=== PATIENT | female | born 1985 | race American Indian/Alaskan Native ===

== ENCOUNTER 2016-07-12 09:03 | Emergency (ER) | payer SELFPAY ==
[2016-07-12 09:12] VITALS: BP 150/100
--- NOTE | 2016-07-12 10:22 | Emergency Department Report ---
HPI - General Chief Complaint: Upper Respiratory Infection Time Seen by Provider: 07/12/16 10:05 - HPI HPI: Patient is a 30-year-old male who presents to ED complaining of throat pain 2 days. Patient describes pain as throbbing in nature, 8 out of 10 intensity, nonradiating, localized to her throat. Admits pain with swallowing and eating. Patient admits no appetite due to throat pain. She is barely able to swallow without discomfort. Vision also had Maalox mild generalized body aches. Patient denies Cough. Patient admits intermittent fever for the past 2 days but not at the moment. Patient denies nausea/vomiting/abdominal pain/shortness of breath/chest pain/ headache. ED Past Medical Hx - Past Medical History Previous Medical History?: No - Surgical History Past Surgical History?: No - Social History Smoking Status: Never Smoker Substance Use Type: None - Medications Home Medications: Home Medications Medication Instructions Recorded Confirmed Last Taken Type Naproxen [Naprosyn TAB] 500 mg PO BID #30 tablet 03/14/15 Unknown Rx Nitrofurantoin [place]/M-Cryst 100 mg PO Q12HR 7 Days 03/14/15 Unknown Rx [Macrobid CAP] Phenazopyridine [Pyridium] 200 mg PO BID PRN 3 Days 03/14/15 Unknown Rx metroNIDAZOLE [Flagyl] 500 mg PO Q12HR 7 Days 03/14/15 Unknown Rx traMADol [Ultram 50 MG tab] 50 mg PO Q6HR PRN #15 tablet 03/14/15 Unknown Rx Ibuprofen [Motrin] 800 mg PO Q8HR PRN #40 tablet 07/12/16 Unknown Rx predniSONE [Deltasone] 20 mg PO DAILY #4 tablet 07/12/16 Unknown Rx ED Review of Systems ROS: Stated complaint: SORE THROAT/ACHES/PAIN Other details as noted in HPI Constitutional: denies: chills, fever Eyes: denies: eye pain, eye discharge, vision change ENT: denies: ear pain, throat pain Respiratory: denies: cough, shortness of breath, wheezing Cardiovascular: denies: chest pain, palpitations Endocrine: no symptoms reported Gastrointestinal: denies: abdominal pain, nausea, vomiting, diarrhea Genitourinary: denies: urgency, dysuria, discharge Musculoskeletal: denies: back pain, joint swelling, arthralgia Skin: denies: rash, lesions Neurological: denies: headache, weakness, paresthesias Psychiatric: denies: anxiety, depression Hematological/Lymphatic: denies: easy bleeding, easy bruising Physical Exam - Physical Exam Vital Signs: Vital Signs 07/12/16 09:08 Temperature 99.0 F Pulse Rate 106 H Respiratory 18 Rate Blood Pressure 150/100 O2 Sat by Pulse 100 Oximetry Physical Exam: GENERAL: Alert and oriented x3, no apparent distress, Normal Gait, atraumatic. HEAD: Head is normocephalic and a-traumatic. EYES: Extra ocular muscles are intact. Pupils are equal, round, and reactive to light and accommodation. EARS: symetrical, atraumatic, non tender, ear canal clear and no cerumen, serous fluid behind tympanic membrance bilaterally but non inflamed. gross auditory nml bilaterally. NOSE: Nose symetrical, Nontender,Nares appeared normal. MOUTH:Mouth is well hydrated and without lesions. Tonsils nonerythematous and partially visible, moderately swollen, Uvula midline, Tongue elevated. Mucous membranes are moist. Posterior pharynx clear, no exudate or lesions. Patent airways. NECK: Supple. Non edematous, No carotid bruits. Anterior lymphadenopathy and tenderness. LUNGS: Symetrical with respiration, No wheezing, no rales or crackles, CTAB. HEART: S1, S2 present, regular rate and rhythm without murmur, no rubs, no gallops. ABDOMEN: No organomegaly was noted,Positive bowel sounds, soft, and non- distended. . Nontender to palpation on all Quadrants, NO CVA tenderness. EXTREMITIES/MUSCULOSKELETAL: No cyanosis, clubbing, rash, lesions or edema. Full ROM bilaterally. UE/LE Pulses 2+ bilaterally. LE and UE 5+ strength bilaterally SKIN: Warm and dry, No lesions, No ulceration or induration present. ED Course Vital Signs 07/12/16 09:08 Temperature 99.0 F Pulse Rate 106 H Respiratory 18 Rate Blood Pressure 150/100 O2 Sat by Pulse 100 Oximetry ED Medical Decision Making - Medical Decision Making 30-year-old female presents with the pharyngitis ED course: Patient received Magic mouthwash, and prednisone by mouth Urinalysis and UPT oriented. Both negative. Rapid strep tests ordered. Rapid strep negative According to well's criteria; patient had anterior cervical adenopathy, fever, mild exudate. Will treat empirically with penicillin IM 1.2 million units. Discussed findings with patient presented for treatment. Discussed patient take medication as prescribed. Discussed the patient to follow up with primary care physician. Patient is a no acute or respiratory distress. Critical care attestation.: If time is entered above; I have spent that time in minutes in the direct care of this critically ill patient, excluding procedure time. ED Disposition Clinical Impression: Acute bacterial tonsillitis Pharyngitis Qualifiers: Pharyngitis/tonsillitis etiology: unspecified etiology Qualified Code(s): J02.9 - Acute pharyngitis, unspecified Disposition: DISCHARGED TO HOME OR SELFCARE Is pt being admited?: No Does the pt Need Aspirin: No Condition: Stable Instructions: Pharyngitis (ED), Strep Throat (ED), Tonsillitis (ED) Prescriptions: Ibuprofen [Motrin] 800 mg PO Q8HR PRN #40 tablet PRN Reason: Pain predniSONE [Deltasone] 20 mg PO DAILY #4 tablet Referrals: PRIMARY CARE, [Primary Care Provider] - 3-5 Days JASPER CHILDS MD [Referring] - 3-5 Days KAYLIE GREENBERG MD [Referring] - 3-5 Days THEODORE WARNER MD [Staff Physician] - 3-5 Days [facility] [Outside[facility] - 3-5 Days [facility] [Outside] - 3-5 Days Forms: Work/School Release Form(ED) Time of Disposition: 11:29
[2016-07-12 10:24] LABS: Bilirubin,Urine NEG (Negative); Blood,Urine NEG (Negative); Ketones,Urine NEG (Negative); Leukocyte Esterase,Urine MOD (Negative); Mucus,Urine FEW /HPF; Nitrite,Urine NEG (Negative); Protein,Urine <15 mg/dL mg/dL (Negative); Urobilinogen,Urine < 2.0 mg/dL (<2.0)
[2016-07-12] MEDS ORDERED: DELTASONE PO ONE (10:49)
[2016-07-12] MEDS ORDERED: BENADRYL PO ONE (10:49)
[2016-07-12] MEDS ORDERED: MAGIC MOUTHWASH PO ONE (11:00)
[2016-07-12] MEDS ORDERED: BICILLIN L-A IM ONE (11:26)
== END 2016-07-12 12:28 | disposition home or self-care (01) ==
LOC: ED 09:03
DX: J03.90 Acute tonsillitis, unspecified (principal); J02.9 Acute pharyngitis, unspecified
CPT/HCPCS: 81001; 81025; 87116; 87430; 96372; 99282; J0561; J7512; Q0163

== ENCOUNTER 2017-05-18 18:36 | Emergency (ER) | payer SELFPAY ==
[2017-05-18] MEDS ORDERED: MOTRIN PO ONE (19:25)
[2017-05-18] MEDS ORDERED: PERCOCET 5/325 PO ONE (19:26)
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
[2017-05-18 22:19] VITALS: BP 146/107
[2017-05-18] MEDS ORDERED: NORVASC PO ONE (22:42)
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
== END 2017-05-18 23:55 | disposition home or self-care (01) ==
LOC: ED 18:36
DX: S39.012A Strain of muscle, fascia and tendon of lower back, initial encounter (principal); G43.001 Migraine without aura, not intractable, with status migrainosus; I10 Essential (primary) hypertension; V49.40XA Driver injured in collision with unspecified motor vehicles in traffic accident, initial encounter; Y93.89 Activity, other specified; Y99.8 Other external cause status; Y92.410 Unspecified street and highway as the place of occurrence of the external cause
CPT/HCPCS: 72100

== ENCOUNTER 2018-09-19 00:50 | Emergency (ER) | payer SELFPAY ==
[2018-09-19 01:31] LABS: Basophils % (Auto) 0.3 % (0.0-1.8); Eosinophils % (Auto) 0.9 % (0.0-4.3); Hematocrit 32.3 % (30.3-42.9); Hemoglobin 10.4 gm/dl (10.1-14.3); Lymphocytes # (Auto) 1.9 K/mm3 (1.2-5.4); Lymphocytes % (Auto) 37.2 % (13.4-35.0); Mean Corpuscular HGB Conc 32 % (30-34); Monocytes # (Auto) 0.5 K/mm3 (0.0-0.8); Platelet Count 290 K/mm3 (140-440); Red Blood Count 4.73 M/mm3 (3.65-5.03); Red Cell Distribution Width 17.4 % (13.2-15.2)
[2018-09-19 01:43] LABS: Mean Corpuscular Volume 68 fl (79-97)
[2018-09-19 01:54] LABS: Alanine Aminotransferase 14 units/L (7-56); Albumin 3.9 g/dL (3.9-5); BUN/Creatinine Ratio 9; Blood Urea Nitrogen 6 mg/dL (7-17); Calcium 9.3 mg/dL (8.4-10.2); Hemolysis Index 8
--- NOTE | 2018-09-19 02:24 | Cat Scan Report ---
PROCEDURE: CT HEAD/BRAIN WO CON TECHNIQUE: Computerized tomography of the head was performed without contrast material. HISTORY: head and neck pain elevated BP COMPARISONS: None . FINDINGS: Skull and scalp: Normal . Paranasal sinuses: Normal . Ventricles and subarachnoid spaces: Normal . Cerebrum: No evidence of hemorrhage, acute infarction or mass . Cerebellum and brainstem: No evidence of hemorrhage, acute infarction or mass . Vasculature: Normal . Other: None . IMPRESSION: No evidence of hemorrhage, acute infarction or mass . This document is electronically signed by Martha Escalante MD., September 19 2018 02:23:00 AM ET
[2018-09-19] MEDS ORDERED: TORADOL IV ONE (02:35)
[2018-09-19] MEDS ORDERED: MORPHINE IV ONE (02:35)
[2018-09-19] MEDS ORDERED: NACL 0.9% 500 ML 500 ML IV ONE (02:35)
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
[2018-09-19] MEDS ORDERED: NACL 0.9% 1000 ML 1,000 ML ONE ×2 (02:49→02:50)
[2018-09-19 02:53] VITALS: BP 164/91
[2018-09-19 03:42] LABS: Bilirubin,Urine NEG (Negative); Blood,Urine NEG (Negative); Color,Urine Yellow (Yellow); Mucus,Urine 2+ /HPF; Protein,Urine <15 mg/dL mg/dL (Negative); Urobilinogen,Urine < 2.0 mg/dL (<2.0)
--- NOTE | 2018-09-19 04:16 | Ultrasound Report ---
PROCEDURE: US PELVIS DUPLEX DOPPLER COMP TECHNIQUE: Real-time transabdominal sonography in multiple planes of the pelvis was performed. The p elvic structures were not optimally visualized. Transvaginal sonography was then performed to better evaluate the structures and/or abnormalities described below with image documentation. Grayscale, col or flow Doppler imaging, and velocity spectral waveform analysis of the ovaries was employed (duplex imaging). HISTORY: Lower abd pain COMPARISONS: None . FINDINGS: UTERUS Size: 8.4 x 4.3 x 5.1 cm. Endometrial thickness: 12 mm. Orientation: anteverted. Cervix: Normal. Fibroids/masses: None. RIGHT Ovary: 2.1 x 1.2 x 1.7 cm. Appearance: There is a dominant follicle and this measures up to 8 mm. Doppler images: Normal spectral waveforms and color flow images of the arterial inflow and venous out flow.. LEFT Ovary: 3.3 x 2.2 x 2.3 cm. Appearance: There is a dominant cyst measuring 26 mm. Doppler images: Normal spectral waveforms and color flow images of the arterial inflow and venous out flow.. Pelvic fluid: None. IMPRESSION: The uterus has a normal appearance. A dominant cyst in the left ovary measures 26 mm. A dominant follicle on the right ovary measures 8 mm. No evidence of fluid in the lower pelvis.. This document is electronically signed by Anila Quinones DO., September 19 2018 04:14:22 AM ET
--- NOTE | 2018-09-19 04:28 | Cat Scan Report ---
PROCEDURE: CT ABDOMEN PELVIS W CON TECHNIQUE: Computerized axial tomography of the abdomen and pelvis was performed after the IV inject ion of iodinated nonionic contrast. CT DOSE LENGTH PRODUCT: mGycm HISTORY: lower abd pain COMPARISONS: None . FINDINGS: Visualized lower thorax: No significant abnormality. Liver: Normal size and attenuation. Spleen: Normal size and attenuation. Gallbladder and biliary system: Normal. Pancreas: Normal. Adrenals: Normal. Kidneys: Normal. GI tract: There is no bowel obstruction, colitis or enteritis. The appendix is normal. . Lymph nodes and mesentery: Normal. Vasculature: Normal.. Bladder: Normal. Reproductive organs: Uterus is unremarkable. There is an involuting cyst in the left ovary measuring 2.5 cm.. Peritoneum: There is minimal free pelvic fluid. There is no free air, abscess or adenopathy.. Musculoskeletal structures: No significant abnormality. IMPRESSION: There is no bowel obstruction, colitis or enteritis. The appendix is normal. . Uterus is unremarkable. There is an involuting cyst in the left ovary measuring 2.5 cm.. There is minimal free pelvic fluid. There is no free air, abscess or adenopathy.. This document is electronically signed by Corona Feliz MD., September 19 2018 04:25:59 AM ET
[2018-09-19] MEDS ORDERED: ZITHROMAX PO ONE (04:33)
[2018-09-19] MEDS ORDERED: ROCEPHIN 250 MG in NACL 0.9% 50 ML IV STA (04:34)
== END 2018-09-19 05:16 | disposition home or self-care (01) ==
LOC: ED 00:50
DX: R59.0 Localized enlarged lymph nodes (principal); I99.9 Unspecified disorder of circulatory system; R10.2 Pelvic and perineal pain
CPT/HCPCS: 36415; 70450; 74177; 76830; 80053; 81001; 82550; 84703; 85025; 87086; 87210; 87591; 93005; 93010; 93975; 96361; 96365; 96375; 99285; J0696; J1885; J2270; J7030; Q9967

== ENCOUNTER 2020-08-16 00:18 | Emergency (ER) | payer SELFPAY | END 2020-08-16 03:07 | disposition left against medical advice (07) | LOC: ED 00:18 | DX: M54.9 Dorsalgia, unspecified (principal); Z53.21 Procedure and treatment not carried out due to patient leaving prior to being seen by health care provider ==